=== PATIENT | female | born 1940 | race Caucasian/White ===

== ENCOUNTER 2017-09-25 14:24 | Inpatient (IN) | payer MEDICARE ==
--- NOTE | 2017-09-25 14:57 | ER Document Report ---
ED General - General Stated Complaint: WEAKNESS Time Seen by Provider: 09/25/17 14:54 Information source: Patient Notes: 77-year-old female patient to the emergency department via EMS for evaluation of lower extremity weakness. States that she woke up at about 3 AM and noticed that she was having difficulty walking. Questionable difficulty with speech. Just arrived here approximately 12 hours after the onset of symptoms. States that she has had a headache on the right occiput area. She states that she does not have any medical problems, never takes any medication and has never had a surgery. - HPI Onset: This morning Onset/Duration: Gradual, Worse Severity: Moderate - Related Data Allergies/Adverse Reactions: No Known Allergies Allergy (Verified 09/25/17 15:48) Past Medical History - General Information source: Patient - Social History Smoking Status: Never Smoker Cigarette use (# per day): No Frequency of alcohol use: None Drug Abuse: None Lives with: Spouse/Significant other Family History: None - Past Medical History Cardiac Medical History: Reports: None Pulmonary Medical History: Reports: None Neurological Medical History: Reports: None Endocrine Medical History: Reports: None Renal/ Medical History: Reports: None Malignancy Medical History: Reports: None GI Medical History: Reports: None Musculoskeltal Medical History: Reports None Skin Medical History: Reports None Psychiatric Medical History: Reports: None Traumatic Medical History: Reports: None Infectious Medical History: Reports: None Surgical Hx: Negative Review of Systems - Review of Systems Constitutional: Weakness. denies: Chills, Fever, Malaise EENT: Blurred vision. denies: Eye pain, Eye discharge, Tearing, Difficulty swallowing Cardiovascular: denies: Chest pain, Palpitations, Heart racing, Dyspnea, Syncope , Dizziness Respiratory: denies: Cough, Hurts to breathe, Hemoptysis, Short of breath, Sputum Gastrointestinal: denies: Abdominal pain, Diarrhea, Nausea Genitourinary: denies: Burning, Dysuria, Discharge, Hematuria Musculoskeletal: See HPI. denies: Muscle pain, Muscle stiffness, Leg swelling, Ankle swelling Skin: denies: Change in hair/nails, Dryness, Lesions, Lumps, Rash Hematologic/Lymphatic: denies: Blood clots, Easy bleeding, Easy bruising, Swollen glands Neurological/Psychological: Weakness, Speech impairment, Numbness. denies: Confusion Physical Exam - Vital signs Vitals: Resp Pulse Ox 17 98 09/25/17 14:59 09/25/17 14:59 Interpretation: Normal - General General appearance: Appears well, Alert - HEENT Head: Normocephalic, Atraumatic Eyes: Normal Pupils: PERRL - Respiratory Respiratory status: No respiratory distress Chest status: Nontender Breath sounds: Normal Chest palpation: Normal - Cardiovascular Rhythm: Regular Heart sounds: Normal auscultation Murmur: No - Abdominal Inspection: Normal Distension: No distension Bowel sounds: Normal Tenderness: Nontender Organomegaly: No organomegaly - Back Back: Normal, Nontender - Extremities General upper extremity: Normal inspection, Nontender, Normal color, Normal ROM , Normal temperature General lower extremity: Normal inspection, Nontender, Normal color, Normal ROM , Normal temperature, Normal weight bearing. No: Trinidad's sign - Neurological Neuro grossly intact: Yes Cognition: Normal Orientation: AAOx4 Ishan Coma Scale Eye Opening: Spontaneous Ishan Coma Scale Verbal: Oriented Ishan Coma Scale Motor: Obeys Commands Ishan Coma Scale Total: 15 Speech: Other - Does have some mild word finding issues Cranial nerves: Normal Motor strength normal: LUE, RUE. No: LLE, RLE Additional motor exam normals: Weakness Sensory: Normal - Psychological Associated symptoms: Normal affect, Normal mood - Skin Skin Temperature: Warm Skin Moisture: Dry Skin Color: Normal Course - Re-evaluation Re-evalutation: 09/25/17 15:39 Is a 77-year-old female patient with noticeable right lower extremity weakness as well as left lower extremity weakness. Was extremely hypertensive in the field. Required 20 mg of IV labetalol to get her blood pressure down below 200. Symptoms are greater than 12 hours so not a candidate for thrombolytics. Will proceed with stroke workup at this time 09/25/17 15:48 Patient with right TONGUE TRIMMER acute infarct. MRI ordered. 09/25/17 16:[address] Penaloza. Will admit to the hospital at this time. - Vital Signs Vital signs: Temp Pulse Resp BP Pulse Ox 98.9 F 77 14 165/94 H 98 09/25/17 15:01 09/25/17 15:00 09/25/17 15:01 09/25/17 15:01 09/25/17 15:01 - Laboratory Result Diagrams: 09/25/17 15:25 09/25/17 15:25 Laboratory results interpreted by me: 09/25/17 09/25/17 15:25 15:25 Seg Neutrophils % 84.1 H Lymphocytes % 9.6 L Glucose 129 H - EKG Interpretation by Me EKG shows normal: Sinus rhythm, [place], Intervals, QRS Complexes - There is T- wave inversions in aVL as well as V4 V5 Critical Care Note - Critical Care Note Total time excluding time spent on procedures (mins): 35 Comments: Acute stroke, hypertensive crisis, neurological symptoms Discharge - Discharge Clinical Impression: 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
--- NOTE | 2017-09-25 15:32 | RADIOLOGY REPORT (SQ) ---
EXAM DESCRIPTION: CT HEAD WITHOUT COMPLETED DATE/TIME: 09/25/2017 3:14 pm REASON FOR STUDY: weakness COMPARISON: None. TECHNIQUE: Axial images acquired through the brain without intravenous contrast. Images reviewed wi th bone, brain and subdural windows. Images stored on PACS. All CT scanners at this facility use dose modulation, iterative reconstruction, and/or weight based d osing when appropriate to reduce radiation dose to as low as reasonably achievable (ALARA). [facility]: Dose Right [facility]: CareDose [facility]: Dose Right [facility]: Teradose 4D [facility]: Smart Gone! RADIATION DOSE: CT Rad equipment meets quality standard of care and radiation dose reduction techniq ues were employed. CTDIvol: 64.6 mGy. DLP: 1034 mGy-cm.mGy. LIMITATIONS: None. FINDINGS: VENTRICLES: Prominent. CEREBRUM: Geographic low attenuation right occipital lobe. No evidence of hemorrhage or mass effect. Old lacunar infarct right basal ganglia. No extra-axial fluid collection. CEREBELLUM: No masses. No hemorrhage. No alteration of density. No evidence for acute infarction. EXTRAAXIAL SPACES: Age-related involutional change. No fluid collections. No masses. ORBITS AND GLOBE: No intra- or extraconal masses. Normal contour of globe without masses. CALVARIUM: No fracture. PARANASAL SINUSES: Mucosal thickening left maxillary and left sphenoid sinuses. SOFT TISSUES: No mass or hematoma. OTHER: No other significant finding. IMPRESSION: Right HEARING AID REPAIR TECHNICIAN territory infarct of uncertain chronicity, possibly acute. No evidence of hem orrhage. EVIDENCE OF ACUTE STROKE: YES. RIGHT HEARING AID REPAIR TECHNICIAN TECHNICAL DOCUMENTATION: JOB ID: [id number] Quality ID # [id number]: Final reports with documentation of one or more dose reduction techniques (e.g., Au tomated exposure control, adjustment of the mA and/or kV according to patient size, use of iterative reconstruction technique) 2010 [employer]- All Rights Reserved
--- NOTE | 2017-09-25 15:42 | RADIOLOGY REPORT (SQ) ---
EXAM DESCRIPTION: CHEST SINGLE VIEW COMPLETED DATE/TIME: 09/25/2017 3:24 pm REASON FOR STUDY: sob COMPARISON: None. EXAM PARAMETERS: NUMBER OF VIEWS: One view. TECHNIQUE: Single frontal radiographic view of the chest acquired. RADIATION DOSE: NA LIMITATIONS: None. FINDINGS: LUNGS AND PLEURA: No opacities, masses or pneumothorax. No pleural effusion. Couple tiny nodular densities are identified in the right mid lung field. Correlation with any prior radiographs if available is recommended. If these are not available chest CT scan should be considered for furt her evaluation MEDIASTINUM AND HILAR STRUCTURES: No masses. Contour normal. HEART AND VASCULAR STRUCTURES: Heart normal in size. Normal vasculature. BONES: No acute findings. HARDWARE: None in the chest. OTHER: No other significant finding. IMPRESSION: No acute changes. Other findings as noted above TECHNICAL DOCUMENTATION: JOB ID: [id number] [employer]- All Rights Reserved
[2017-09-25] MEDS ORDERED: ASPIRIN 81 MG TABLET, CHEWABLE PO ONE (15:48)
[2017-09-25 15:51] LABS: ABSOLUTE BASOPHILS # (AUTO) 0.1 10^3/uL (0.0-0.2); ABSOLUTE LYMPHOCYTES (AUTO) 0.7 10^3/uL (0.5-4.7); ABSOLUTE MONOCYTES (AUTO) 0.4 10^3/uL (0.1-1.4); ABSOLUTE NEUT (AUTO) 6.2 10^3/uL (1.7-8.2); BASOPHILS % (AUTO) 0.9 % (0-2); EOSINOPHILS % (AUTO) 0.2 % (0-6); HEMATOCRIT 43.1 % (36.0-47.0); HEMOGLOBIN 14.8 g/dL (12.0-15.5); LYMPHOCYTES % (AUTO) 9.6 % (13-45); MEAN CORPUSCULAR HEMOGLOBIN 31.2 pg (27.0-33.4); MEAN CORPUSCULAR HGB CONC 34.2 g/dL (32.0-36.0); MEAN CORPUSCULAR VOLUME 91 fl (80-97); MONOCYTES % (AUTO) 5.2 % (3-13); PLATELET COUNT 298 10^3/uL (150-450); RED BLOOD COUNT 4.73 10^6/uL (3.72-5.28); RED CELL DISTRIBUTION WIDTH 13.6 % (11.5-14.0); SEGMENTED NEUTROPHILS % (AUTO) 84.1 % (42-78); TOTAL CELLS COUNTED % (AUTO) 100 %; WHITE BLOOD COUNT 7.4 10^3/uL (4.0-10.5)
[2017-09-25 15:54] LABS: INTERNATIONAL RATION (INR) 0.97; PROTHROMBIN TIME 13.6 SEC (11.4-15.4)
[2017-09-25 15:55] LABS: PARTIAL THROMBOPLASTIN TIME 26.9 SEC (23.5-35.8)
[2017-09-25 16:08] LABS: ALANINE AMINOTRANSFERASE 25 U/L (9-52); ALBUMIN 4.2 g/dL (3.5-5.0); ALKALINE PHOSPHATASE 78 U/L (38-126); ANION GAP 9 (5-19); ASPARTATE AMINO TRANSFERASE 21 U/L (14-36); BILIRUBIN,DIRECT 0.2 mg/dL (0.0-0.4); BILIRUBIN,TOTAL 0.8 mg/dL (0.2-1.3); BLOOD UREA NITROGEN 18 mg/dL (7-20); CALCIUM 9.9 mg/dL (8.4-10.2); CARBON DIOXIDE 25 mmol/L (22-30); CHLORIDE 105 mmol/L (98-107); GLUCOSE 129 mg/dL (75-110); POTASSIUM 4.1 mmol/L (3.6-5.0); SODIUM 139.2 mmol/L (137-145); TOTAL PROTEIN 6.9 g/dL (6.3-8.2)
[2017-09-25 16:19] LABS: NT PRO BNP 115 pg/mL (<450)
[2017-09-25 16:20] LABS: TROPONIN I < 0.012 ng/mL
[2017-09-25] MEDS ORDERED: ONDANSETRON HCL INJ/PF 4 MG/2 ML SDV IV PRN (16:56)
[2017-09-25] MEDS ORDERED: TRAMADOL HCL 50 MG TABLET PO PRN (16:56)
[2017-09-25] MEDS ORDERED: ONDANSETRON 4 MG TAB.RAPDIS PO PRN (16:56)
[2017-09-25] MEDS ORDERED: ACETAMINOPHEN 325 MG TABLET PO PRN (16:56)
[2017-09-25 17:33] LABS: APPEARANCE,URINE CLEAR; BILIRUBIN,URINE NEGATIVE (NEGATIVE); COLOR,URINE YELLOW; GLUCOSE, URINE NEGATIVE (NEGATIVE); KETONES,URINE 20 mg/dL (NEGATIVE); LEUKOCYTE ESTERASE,URINE NEGATIVE (NEGATIVE); NITRITE,URINE NEGATIVE (NEGATIVE); PROTEIN,URINE NEGATIVE (NEGATIVE); URINE SPECIFIC GRAVITY 1.023
--- NOTE | 2017-09-25 17:33 | PDOC H&P ---
History of Present Illness Admission Date/PCP: 09/25/17 16:10 Patient complains of: Leg weakness and difficulty speaking. History of Present Illness: GILBERTO JASON is a 77 year old female with no significant past medical history who presents with bilateral lower extremity weakness along with some dysarthria. Patient reports that she woke up at 3 AM this morning and noticed that she had some weakness in her left leg. She thought nothing of it at the time went back to sleep. When she woke up this morning she noticed that she was having difficulty speaking and also had weakness in her bilateral legs left greater than right. The patient also noted having pain in the right occiput area. That headache has since resolved. The patient had a head CT done which does confirm a right posterior circulation CVA. The patient has not taken any aspirin. She has no past medical history and has not seen a doctor in her entire life. Patient is admitted for an acute CVA. Past Medical History Cardiac Medical History: Reports: None Pulmonary Medical History: Reports: None EENT Medical History: Reports: None Neurological Medical History: Reports: None Endocrine Medical History: Reports: None Renal/ Medical History: Reports: None Malignancy Medical History: Reports: None GI Medical History: Reports: None Musculoskeltal Medical History: Reports: None Skin Medical History: Reports: None Psychiatric Medical History: Reports: None Traumatic Medical History: Reports: None Infectious Medical History: Reports: None Past Surgical History Past Surgical History: Reports: None Social History Information Source: Patient Lives with: Spouse/Significant other Smoking Status: Never Smoker Frequency of Alcohol Use: None Hx Recreational Drug Use: No Drugs: None - Advance Directive Resuscitation Status: Full Code Surrogate healthcare decision maker:: She has no living family. Rosa Mckinney is a friend she identifies to make healthcare decisions for her if she is unable to Family History Family History: None Family History: Mother at age 65 and had no chronic health problems. Father at age 73 and had no chronic health problems. Parental Family History Reviewed: Yes Children Family History Reviewed: No Sibling(s) Family History Reviewed.: No Medication/Allergy Home Medications: No Home Medications 09/25/17 Allergies/Adverse Reactions: No Known Allergies Allergy (Verified 09/25/17 15:48) Review of Systems Constitutional: PRESENT: headache(s). ABSENT: chills, fever(s), weight gain, weight loss Eyes: ABSENT: visual disturbances Ears: ABSENT: hearing changes Cardiovascular: ABSENT: chest pain, dyspnea on exertion, edema, orthropnea, palpitations Respiratory: ABSENT: cough, hemoptysis Gastrointestinal: ABSENT: abdominal pain, constipation, diarrhea, hematemesis, hematochezia, nausea, vomiting Genitourinary: ABSENT: dysuria, hematuria Musculoskeletal: PRESENT: muscle weakness. ABSENT: joint swelling Integumentary: ABSENT: rash, wounds Neurological: PRESENT: abnormal speech, weakness Psychiatric: ABSENT: anxiety, depression Endocrine: ABSENT: cold intolerance, heat intolerance, polydipsia, polyuria Hematologic/Lymphatic: ABSENT: easy bleeding, easy bruising Physical Exam Vital Signs: Temp Pulse Resp BP Pulse Ox 98.9 F 77 14 165/94 H 98 09/25/17 15:01 09/25/17 15:00 09/25/17 15:01 09/25/17 15:01 09/25/17 15:01 General appearance: PRESENT: no acute distress, well-developed, well-nourished Head exam: PRESENT: atraumatic, normocephalic Eye exam: PRESENT: conjunctiva pink, EOMI, PERRLA. ABSENT: scleral icterus Ear exam: PRESENT: normal external ear exam Mouth exam: PRESENT: moist, tongue midline Neck exam: ABSENT: JVD Respiratory exam: PRESENT: clear to auscultation fanny. ABSENT: rales, rhonchi, wheezes Cardiovascular exam: PRESENT: RRR. ABSENT: diastolic murmur, rubs, systolic murmur Pulses: PRESENT: normal dorsalis pedis pul Vascular exam: PRESENT: normal capillary refill GI/Abdominal exam: PRESENT: normal bowel sounds, soft. ABSENT: distended, guarding, mass, organolmegaly, rebound, tenderness Rectal exam: PRESENT: deferred Extremities exam: ABSENT: calf tenderness, clubbing, pedal edema Neurological exam: PRESENT: alert, awake, oriented to person, oriented to place , oriented to time, oriented to situation, CN II-XII grossly intact, motor sensory deficit - Patient has weakness in the bilateral legs left greater than right Psychiatric exam: PRESENT: appropriate affect Skin exam: PRESENT: dry, intact, warm. ABSENT: cyanosis, rash Results Impressions: Chest X-Ray 09/25/17 14:55 IMPRESSION: No acute changes. Other findings as noted above Head CT 09/25/17 14:55 IMPRESSION: Right SEPARATOR INSERTER territory infarct of uncertain chronicity, possibly acute. No evidence of hemorrhage. EVIDENCE OF ACUTE STROKE: YES. 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 Will do serial neurological exams. We will start the patient on aspirin daily. Carotid Dopplers and MRI have been ordered. We will also consult PT and OT. She most likely will need rehab given that she has no family. - Time Time Spent: 50 to 70 Minutes - Inpatient Certification Medical Necessity: Need for Neurological Checks
[2017-09-25] MEDS: HYDRALAZINE HCL INJ/PF 20 MG/1 ML SDV IV PRN (18:17)
--- NOTE | 2017-09-25 18:18 | RADIOLOGY REPORT (SQ) ---
EXAM DESCRIPTION: MRI HEAD WITHOUT COMPLETED DATE/TIME: 09/25/2017 6:09 pm REASON FOR STUDY: leg weakness COMPARISON: HEAD CT FOR 09/25/2017 TECHNIQUE: Multiplanar imaging includes non-contrasted T1, T2, FLAIR, and diffusion with ADC map seq uences. Images stored on PACS. LIMITATIONS: None. FINDINGS: ANATOMY: No anomalies. Normal vascular flow voids. Pituitary fossa normal. CSF SPACES: Atrophy induced prominence of ventricles and CSF spaces. CEREBRUM: NUMEROUS HIGH signal intensity lesions scattered throughout the white matter on FLAIR imagi ng with distribution suggesting micro-vascular ischemic changes. No evidence of hemorrhage, mass, or extraaxial fluid collection. POSTERIOR FOSSA: No signal alteration. No hemorrhage. No edema, masses or mass effect. Internal lamberto tory canals, cerebello-pontine angles, mastoids normal. DIFFUSION IMAGING: CONFLUENT AREA OF RESTRICTED DIFFUSION INVOLVING THE RIGHT OCCIPITAL LOBE CORRESPO NDING TO AREA OF LOW ATTENUATION ON PRIOR CT COMPATIBLE WITH ACUTE CDL DRIVER TERRITORY INFARCTION. ADDITIO NAL RIBBON LIKE AREAS OF RESTRICTED DIFFUSION INVOLVING THE LEFT GREATER THAN RIGHT FRONTAL LOBES TA NG SAAVEDRA WHITE MATTER JUNCTIONS COMPATIBLE WITH WATERSHED TERRITORY TYPE INFARCTION. ORBITS: No masses. Globes normal. PARANASAL SINUSES: Mucosal thickening. No air-fluid levels. OTHER: No other significant finding. IMPRESSION: ACUTE INFARCTION RIGHT OCCIPITAL LOBE CORRESPONDING TO FINDINGS ON CT WITH ADDITIONAL AR EAS OF WATERSHED TYPE INFARCTION INVOLVING THE BILATERAL FRONTAL LOBES DETAILED ABOVE. EVIDENCE OF ACUTE STROKE: YES. RIGHT CDL DRIVER AND WATERSHED DISTRIBUTION. TECHNICAL DOCUMENTATION: JOB ID: [id number] [employer]- All Rights Reserved
[2017-09-25] MEDS: ATORVASTATIN CALCIUM 40 MG TABLET PO SCH (22:39)
[2017-09-25] MEDS: FAMOTIDINE 20 MG TABLET PO SCH (22:39)
[2017-09-26 05:08] LABS: HEMATOCRIT 40.6 % (36.0-47.0); HEMOGLOBIN 13.9 g/dL (12.0-15.5); MEAN CORPUSCULAR HEMOGLOBIN 30.8 pg (27.0-33.4); MEAN CORPUSCULAR HGB CONC 34.1 g/dL (32.0-36.0); MEAN CORPUSCULAR VOLUME 90 fl (80-97); PLATELET COUNT 294 10^3/uL (150-450); RED BLOOD COUNT 4.51 10^6/uL (3.72-5.28); RED CELL DISTRIBUTION WIDTH 13.6 % (11.5-14.0)
[2017-09-26 05:23] LABS: ANION GAP 10 (5-19); BLOOD UREA NITROGEN 21 mg/dL (7-20); CALCIUM 9.4 mg/dL (8.4-10.2); CARBON DIOXIDE 25 mmol/L (22-30); CHLORIDE 105 mmol/L (98-107); GLUCOSE 114 mg/dL (75-110); POTASSIUM 3.8 mmol/L (3.6-5.0); SODIUM 140.2 mmol/L (137-145)
--- NOTE | 2017-09-26 10:14 | PDOC PROGRESS REPORT ---
Subjective Progress Note for:: 09/26/17 Subjective:: Patient has some use of her left leg again. Reason For Visit: CVA Physical Exam Vital Signs: Temp Pulse Resp BP Pulse Ox 99.0 F 87 20 151/72 H 97 09/26/17 03:23 09/26/17 04:00 09/26/17 04:00 09/26/17 04:00 09/26/17 04:00 Intake & Output 09/25/17 09/26/17 09/27/17 06:59 06:59 06:59 Intake Total 360 Output Total 100 Balance 260 Weight 77.2 kg General appearance: PRESENT: no acute distress Eye exam: PRESENT: conjunctiva pink. ABSENT: scleral icterus Mouth exam: PRESENT: moist, tongue midline Neck exam: ABSENT: JVD Respiratory exam: PRESENT: clear to auscultation fanny. ABSENT: rales, rhonchi, wheezes Cardiovascular exam: PRESENT: RRR. ABSENT: diastolic murmur, rubs, systolic murmur GI/Abdominal exam: PRESENT: normal bowel sounds, soft. ABSENT: distended, guarding, mass, organolmegaly, rebound, tenderness Extremities exam: ABSENT: calf tenderness, clubbing, pedal edema Neurological exam: PRESENT: alert, awake, oriented to person, oriented to place , oriented to time, oriented to situation, CN II-XII grossly intact, motor sensory deficit - Bilateral leg weakness left greater than right. Left leg is 3 out of 5. Psychiatric exam: PRESENT: appropriate affect Skin exam: PRESENT: dry, intact, warm. ABSENT: cyanosis, rash Results Laboratory Results: 09/26/17 04:50 09/26/17 04:50 09/25/17 09/26/17 09/26/17 17:10 04:50 04:50 WBC 8.0 RBC 4.51 Hgb 13.9 Hct 40.6 MCV 90 MCH 30.8 MCHC 34.1 RDW 13.6 Plt Count 294 Sodium 140.2 Potassium 3.8 Chloride 105 Carbon Dioxide 25 Anion Gap 10 BUN 21 H Creatinine 0.75 Est GFR ( Amer) > 60 Est GFR (Non-Af Amer) > 60 Glucose 114 H Calcium 9.4 Urine Color YELLOW Urine Appearance CLEAR Urine pH 6.0 Ur Specific [place] 1.023 Urine Protein NEGATIVE Urine Glucose (UA) NEGATIVE Urine Ketones 20 H Urine Blood NEGATIVE Urine Nitrite NEGATIVE Ur Leukocyte Esterase NEGATIVE Urine WBC (Auto) 2 Urine RBC (Auto) 0 Impressions: Head MRI 09/25/17 00:00 IMPRESSION: ACUTE INFARCTION RIGHT OCCIPITAL LOBE CORRESPONDING TO FINDINGS ON CT WITH ADDITIONAL AREAS OF WATERSHED TYPE INFARCTION INVOLVING THE BILATERAL FRONTAL LOBES DETAILED ABOVE. EVIDENCE OF ACUTE STROKE: YES. RIGHT COMMERCIAL TECHNICIAN AND WATERSHED DISTRIBUTION. Chest X-Ray 09/25/17 14:55 IMPRESSION: No acute changes. Other findings as noted above Head CT 09/25/17 14:55 IMPRESSION: Right COMMERCIAL TECHNICIAN territory infarct of uncertain chronicity, possibly acute. No evidence of hemorrhage. EVIDENCE OF ACUTE STROKE: YES. 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 We will also consult PT and OT. MRI shows right posterior artery infarction. Also watershed infarction of the frontal lobes. She most likely will need rehab given that she has no family. - Time Time Spent with patient: 25-34 minutes - Inpatient Certification Medical Necessity: Need Close Monitoring Due to Risk of Patient Decompensation
[2017-09-26] MEDS: ASPIRIN 325 MG TABLET, ENT COATED PO SCH (10:19)
[2017-09-26] MEDS: FAMOTIDINE 20 MG TABLET PO SCH ×2 (10:19→23:46)
--- NOTE | 2017-09-26 10:19 | EKG REPORT ---
SEVERITY:- ABNORMAL ECG - SINUS RHYTHM ABNORMAL T, CONSIDER ISCHEMIA, ANT-LAT LEADS : Confirmed by: Emeli Christianson 26-Sep-2017 10:18:44
[2017-09-26] MEDS: ENOXAPARIN SODIUM INJ 40 MG/0.4 ML DISP.SYRIN SUBCUT SCH (10:20)
--- NOTE | 2017-09-26 12:31 | RADIOLOGY REPORT (SQ) ---
EXAM DESCRIPTION: CAROTID DOPPLER COMPLETED DATE/TIME: 09/25/2017 8:10 pm REASON FOR STUDY: leg weakness COMPARISON: None. TECHNIQUE: Grayscale ultrasound, Doppler velocity and spectra, and color Doppler images acquired of the extra-cranial carotid and vertebral arteries. Images stored on PACS. LIMITATIONS: None. FINDINGS: RIGHT CAROTID CCA Velocities: Within normal limits. ICA Velocities Peak systolic 1.13 m/s. End diastolic 0.22 m/s. Proximal ICA/CCA peak systolic ratio 1 point to. Spectra normal. Mild moderate plaque. LEFT CAROTID CCA Velocities: Within normal limits. ICA Velocities Peak systolic 0.72 m/s. End diastolic 0.21 m/s. Proximal ICA/CCA peak systolic ratio 0.9. Spectra normal. Mild plaque. VERTEBRAL ARTERIES: Antegrade flow. Normal waveforms. SUBCLAVIAN ARTERIES: No finding. OTHER: No other significant finding. IMPRESSION: NO HEMODYNAMICALLY SIGNIFICANT STENOSIS. COMMENT: Quality ID #[id number]: Velocity criteria are extrapolated from the diameter data as defined by t he Society of Radiologists in Ultrasound Consensus Conference. Radiology 2003: 229; 340-346. TECHNICAL DOCUMENTATION: JOB ID: [id number] [employer]- All Rights Reserved
[2017-09-26] MEDS: HYDRALAZINE HCL INJ/PF 20 MG/1 ML SDV IV PRN (20:34)
[2017-09-26] MEDS ORDERED: HYDRALAZINE HCL INJ/PF 20 MG/1 ML SDV IV ONE (22:15)
[2017-09-26] MEDS: ATORVASTATIN CALCIUM 40 MG TABLET PO SCH (23:47)
[2017-09-27] MEDS: ASPIRIN 325 MG TABLET, ENT COATED PO SCH (08:44)
[2017-09-27] MEDS: FAMOTIDINE 20 MG TABLET PO SCH ×2 (08:44→20:28)
[2017-09-27] MEDS: HYDRALAZINE HCL INJ/PF 20 MG/1 ML SDV IV PRN (08:44)
[2017-09-27] MEDS: ENOXAPARIN SODIUM INJ 40 MG/0.4 ML DISP.SYRIN SUBCUT SCH (08:45)
--- NOTE | 2017-09-27 12:05 | PDOC PROGRESS REPORT ---
Subjective Progress Note for:: 09/27/17 Subjective:: She continues to have improvement in left leg strength. Reason For Visit: CVA Physical Exam Vital Signs: Temp Pulse Resp BP Pulse Ox 98.2 F 83 19 180/87 H 98 09/27/17 08:08 09/27/17 08:08 09/27/17 08:08 09/27/17 08:08 09/27/17 08:08 Intake & Output 09/26/17 09/27/17 09/28/17 06:59 06:59 06:59 Intake Total 360 725 Output Total 100 500 Balance 260 225 Weight 77.2 kg 76.6 kg General appearance: PRESENT: no acute distress Eye exam: PRESENT: conjunctiva pink. ABSENT: scleral icterus Ear exam: PRESENT: normal external ear exam Mouth exam: PRESENT: moist, tongue midline Neck exam: ABSENT: JVD Respiratory exam: PRESENT: clear to auscultation fanny. ABSENT: rales, rhonchi, wheezes Cardiovascular exam: PRESENT: RRR. ABSENT: diastolic murmur, rubs, systolic murmur GI/Abdominal exam: PRESENT: normal bowel sounds, soft. ABSENT: distended, guarding, mass, organolmegaly, rebound, tenderness Extremities exam: ABSENT: calf tenderness, clubbing, pedal edema Neurological exam: PRESENT: alert, awake, oriented to person, oriented to place , oriented to time, oriented to situation, CN II-XII grossly intact, motor sensory deficit - 3 out of 5 strength in the left lower extremity. Psychiatric exam: PRESENT: appropriate affect Skin exam: PRESENT: dry, intact, warm. ABSENT: cyanosis, rash Results Laboratory Results: 09/26/17 04:50 09/26/17 04:50 Impressions: Head MRI 09/25/17 00:00 IMPRESSION: ACUTE INFARCTION RIGHT OCCIPITAL LOBE CORRESPONDING TO FINDINGS ON CT WITH ADDITIONAL AREAS OF WATERSHED TYPE INFARCTION INVOLVING THE BILATERAL FRONTAL LOBES DETAILED ABOVE. EVIDENCE OF ACUTE STROKE: YES. RIGHT RADON INSPECTOR AND WATERSHED DISTRIBUTION. Chest X-Ray 09/25/17 14:55 IMPRESSION: No acute changes. Other findings as noted above Head CT 09/25/17 14:55 IMPRESSION: Right RADON INSPECTOR territory infarct of uncertain chronicity, possibly acute. No evidence of hemorrhage. EVIDENCE OF ACUTE STROKE: YES. RIGHT RADON INSPECTOR Carotid Doppler Study 09/25/17 17:00 IMPRESSION: NO HEMODYNAMICALLY SIGNIFICANT STENOSIS. 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 We will also consult PT and OT. MRI shows right posterior artery infarction. Also watershed infarction of the frontal lobes. She most likely will need rehab given that she has no family. (2) Hypertension Is this a current diagnosis for this admission?: Yes Plan: We will add on Norvasc to her therapy. - Time Time Spent with patient: 15-24 minutes - Plan Summary Plan Summary: Patient is agreeable to going to rehab.
[2017-09-27] MEDS: AMLODIPINE BESYLATE 5 MG TABLET PO SCH (17:51)
[2017-09-27] MEDS: NORMAL SALINE 1000 ML 1,000 ML IV PRN (18:00)
[2017-09-27] MEDS: ATORVASTATIN CALCIUM 40 MG TABLET PO SCH (20:27)
[2017-09-28] MEDS: NORMAL SALINE 1000 ML 1,000 ML IV PRN ×2 (00:53→05:35)
[2017-09-28] MEDS: ASPIRIN 325 MG TABLET, ENT COATED PO SCH (09:23)
[2017-09-28] MEDS: FAMOTIDINE 20 MG TABLET PO SCH (09:23)
[2017-09-28] MEDS: ENOXAPARIN SODIUM INJ 40 MG/0.4 ML DISP.SYRIN SUBCUT SCH (09:23)
[2017-09-28] MEDS: AMLODIPINE BESYLATE 5 MG TABLET PO SCH (09:24)
--- NOTE | 2017-09-28 12:44 | PDOC TRANSFER SUMMARY ---
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 Is this a current diagnosis for this admission?: Yes (2) Hypertension Is this a current diagnosis for this admission?: Yes - Additional Information Resuscitation Status: Full Code Discharge Diet: Cardiac Discharge Activity: Activity As Tolerated Home Medications: Amlodipine Besylate [Norvasc 5 mg Tablet] 5 mg PO DAILY tablet 09/28/17 Aspirin [Ecotrin 325 mg EC Tablet] 325 mg PO DAILY tabec 09/28/17 Atorvastatin Calcium [Lipitor 40 mg Tablet] 40 mg PO QHS tablet 09/28/17 History of Present Illness Admission Date/PCP: 09/25/17 16:10 History of Present Illness: GILBERTO JASON is a 77 year old female with no significant past medical history who presents with bilateral lower extremity weakness along with some dysarthria. Patient reports that she woke up at 3 AM this morning and noticed that she had some weakness in her left leg. She thought nothing of it at the time went back to sleep. When she woke up this morning she noticed that she was having difficulty speaking and also had weakness in her bilateral legs left greater than right. The patient also noted having pain in the right occiput area. That headache has since resolved. The patient had a head CT done which does confirm a right posterior circulation CVA. The patient has not taken any aspirin. She has no past medical history and has not seen a doctor in her entire life. Patient is admitted for an acute CVA. Hospital Course Hospital Course: 77-year-old female who has been in good health with no chronic health issues who presented to the hospital with leg weakness and some dysarthria. Patient reported that she woke up with some weakness in her left leg but went back to sleep because it was in the middle the night. She also had a right occiput headache at that time. When she awoke she was having inability to move her legs and was continued to have dysarthria. Dysarthria resolved however her weakness in her legs left greater than right continued and she was transferred to the hospital. Patient was found to have an acute right occipital infarction. MRI confirmed the occipital infarction also did show some bilateral frontal watershed type infarction. The patient had carotid Dopplers that showed no significant stenosis. The patient was in aspirin collins patient and she was started on aspirin as well as Lipitor. Patient was seen by physical and occupational therapy and she improved but continues to have weakness in her legs. [place] the patient could benefit from rehabilitation. Patient had an echocardiogram done. The results of this echocardiogram is pending at the time of this dictation. She has not had any cardiac arrhythmias however. The patient lives alone and has no living family. She will be admitted to [facility] for rehab. Physical Exam Vital Signs: Temp Pulse Resp BP Pulse Ox 98.8 F 79 20 173/70 H 99 09/28/17 12:07 09/28/17 12:07 09/28/17 12:07 09/28/17 12:07 09/28/17 12:07 Intake & Output 09/27/17 09/28/17 09/29/17 06:59 06:59 06:59 Intake Total 725 2761 Output Total 500 650 Balance 225 2111 Weight 76.6 kg 82.1 kg General appearance: PRESENT: no acute distress Eye exam: PRESENT: conjunctiva pink. ABSENT: scleral icterus Mouth exam: PRESENT: moist, tongue midline Neck exam: ABSENT: JVD Respiratory exam: PRESENT: clear to auscultation fanny. ABSENT: rales, rhonchi, wheezes Cardiovascular exam: PRESENT: RRR. ABSENT: diastolic murmur, rubs, systolic murmur GI/Abdominal exam: PRESENT: normal bowel sounds, soft. ABSENT: distended, guarding, mass, organolmegaly, rebound, tenderness Extremities exam: ABSENT: calf tenderness, clubbing, pedal edema Neurological exam: PRESENT: alert, awake, oriented to person, oriented to place , oriented to time, oriented to situation, CN II-XII grossly intact, motor sensory deficit - Left leg is weak Psychiatric exam: PRESENT: appropriate affect Skin exam: PRESENT: dry, intact, warm. ABSENT: cyanosis, rash Results Laboratory Results: 09/26/17 04:50 09/26/17 04:50 Impressions: Head MRI 09/25/17 00:00 IMPRESSION: ACUTE INFARCTION RIGHT OCCIPITAL LOBE CORRESPONDING TO FINDINGS ON CT WITH ADDITIONAL AREAS OF WATERSHED TYPE INFARCTION INVOLVING THE BILATERAL FRONTAL LOBES DETAILED ABOVE. EVIDENCE OF ACUTE STROKE: YES. RIGHT SUPERVISOR BEET END AND WATERSHED DISTRIBUTION. Chest X-Ray 09/25/17 14:55 IMPRESSION: No acute changes. Other findings as noted above Head CT 09/25/17 14:55 IMPRESSION: Right SUPERVISOR BEET END territory infarct of uncertain chronicity, possibly acute. No evidence of hemorrhage. EVIDENCE OF ACUTE STROKE: YES. RIGHT SUPERVISOR BEET END Carotid Doppler Study 09/25/17 17:00 IMPRESSION: NO HEMODYNAMICALLY SIGNIFICANT STENOSIS. Transfer Plan - Disposition Transfer Plan: Patient will be transferred to [facility] for rehab. - Time Spent with Patient Time spent with patient: Greater than 30 Minutes Qualifiers PATEINT BEING DISCHARGED WITH ANY OF THE FOLLOWING DIAGNOSIS?: Stroke Stroke Pt being discharged on Anti-thrombolytic therapy?: Yes Stroke Pt being discharged on Anti-coagulation therapy?: No Reason(s) for not prescribing Anti-coagulation therapy:: Not indicated Stroke Pt being discharged on Statins?: Yes Plan Discharge Plan: Patient will be transferred to [facility] for rehab. Follow -up with primary care in 2 weeks. Time Spent: Greater than 30 Minutes
[2017-09-28] MEDS: HYDRALAZINE HCL INJ/PF 20 MG/1 ML SDV IV PRN (13:12)
[2017-09-28 16:17] VITALS: BP 152/57
--- NOTE | 2017-09-29 15:47 | RADIOLOGY REPORT (SQ) ---
EXAM DESCRIPTION: CAROTID DOPPLER COMPLETED DATE/TIME: 09/25/2017 8:10 pm REASON FOR STUDY: Leg weakness COMPARISON: None. TECHNIQUE: Grayscale ultrasound, Doppler velocity and spectra, and color Doppler images acquired of the extra-cranial carotid and vertebral arteries. Images stored on PACS. LIMITATIONS: None. FINDINGS: RIGHT CAROTID CCA Velocities: Within normal limits. ICA Velocities Peak systolic 1.13 m/s. End diastolic 0.22 m/s. Proximal ICA/CCA peak systolic ratio 1 point to . Spectra normal. Mild moderate plaque. LEFT CAROTID CCA Velocities: Within normal limits. ICA Velocities Peak systolic 0.72 m/s. End diastolic 0.21 m/s. Proximal ICA/CCA peak systolic ratio 0.9 . Spectra normal. Mild plaque. VERTEBRAL ARTERIES: Antegrade flow. Normal waveforms. SUBCLAVIAN ARTERIES: No finding. OTHER: No other significant finding. IMPRESSION: NO HEMODYNAMICALLY SIGNIFICANT STENOSIS. COMMENT: Quality ID #[id number]: Velocity criteria are extrapolated from the diameter data as defined by th e Society of Radiologists in Ultrasound Consensus Conference. Radiology 2003: 229; 340-346. TECHNICAL DOCUMENTATION: JOB ID: [id number] D/ Line above is the original date and time. 2010 [employer]- All Rights Reserved
--- NOTE | 2017-09-29 17:56 | XCELERA REPORT ---
[address] [address] Transthoracic Echocardiogram Report Name: GILBERTO JASON Age: 77 yrs Gender: Female : 1940 Patient Status: Inpatient Patient Location: [address] [place] [address] Study Date: 09/25/2017 07:05 PM Procedure: A two-dimensional transthoracic echocardiogram with color flow Doppler was performed. Study Quality: Fair. Reason For Study: CVA History: CVA. Ordering Physician: DYLAN MCCLOUD Performed By: Asha Garcia Interpretation Summary There is no obvious cardiac source of embolus noted on this transthoracic echocardiogram. Follow-up with a MORGAN is suggested if cardiac source is still suspected. The left ventricle is normal in size. There is normal left ventricular wall thickness. Left ventricular systolic function is normal. LV EF is > than 65% Doppler measurements suggest impaired left ventricular relaxation, which is associated with grade I/IV or mild diastolic dysfunction The left ventricular wall motion is normal. There is no thrombus. The left atrial size is normal. There is no evidence of mitral valve prolapse. There is no vegetation seen on the mitral valve. There is no mitral valve stenosis. There is no mitral regurgitation noted. There is no aortic valve stenosis There is no LVOT obstruction. No aortic regurgitation is present. There is no tricuspid stenosis. There is a trace amount of tricuspid regurgitation Right ventricular systolic pressure is normal. RVSP is 15 mm of Hg , with RA mean of 5. There is no pericardial effusion. There is no obvious cardiac source of embolus noted on this transthoracic echocardiogram. Follow-up with a MORGAN is suggested if cardiac source is still suspected MMode/2D Measurements & Calculations RVDd: 1.8 cm LVIDd: 4.7 cm FS: 46.9 % Ao root diam: 3.0 cm IVSd: 1.1 cm LVIDs: 2.5 cm EDV(Teich): 100.6 ml Ao root area: 7.0 cm2 LVPWd: 1.2 cm ESV(Teich): 21.8 ml EF(Teich): 78.3 % Doppler Measurements & Calculations MV E max francesca: MV dec slope: Ao V2 max: LV V1 max P.2 cm/sec 336.8 cm/sec2 188.4 cm/sec 6.6 mmHg MV A max francesca: MV dec time: Ao max PG: LV V1 max: 135.5 cm/sec 0.21 sec 14.2 mmHg 128.3 cm/sec MV E/A: 0.53 PA V2 max: TR max francesca: 161.7 cm/sec 160.7 cm/sec PA max PG: TR max P.3 mmHg 10.5 mmHg Left Ventricle The left ventricle is normal in size. There is normal left ventricular wall thickness. Left ventricular systolic function is normal. LV EF is > than 65%. Doppler measurements suggest impaired left ventricular relaxation, which is associated with grade I/IV or mild diastolic dysfunction. The left ventricular wall motion is normal. There is no thrombus. Right Ventricle The right ventricle is normal in size and function. Atria The right atrium is normal. The left atrial size is normal. The interatrial septum is intact with no evidence for an atrial septal defect. Mitral Valve There is no evidence of mitral valve prolapse. There is no vegetation seen on the mitral valve. There is no mitral valve stenosis. There is no mitral regurgitation noted. Aortic Valve There is no aortic valvular vegetation. There is no aortic valve stenosis. There is no LVOT obstruction. No aortic regurgitation is present. Tricuspid Valve There is no tricuspid stenosis. There is a trace amount of tricuspid regurgitation. Right ventricular systolic pressure is normal. RVSP is 15 mm of Hg , with RA mean of 5. Pulmonic Valve There is no pulmonic valvular stenosis. There is no pulmonic valvular regurgitation. Great Vessels The aortic root is normal size. Effusions There is no pericardial effusion. : DYLAN MCCLOUD > Gemini Garcia
== END 2017-09-28 18:00 | DRG 65 ==
LOC: ER 14:24 → EH 16:10 → 3W 19:43
PROVIDERS: ADMIT Internal Medicine; ATTEND Internal Medicine
DX: I63.541 Cerebral infarction due to unspecified occlusion or stenosis of right cerebellar artery (principal); I16.9 Hypertensive crisis, unspecified; R53.1 Weakness
CPT/HCPCS: 36415; 70450; 70551; 71045; 80048; 80053; 81001; 83880; 84484; 85025; 85027; 85610; 85730; 93005; 93010; 93306; 93880; 99291; G8978-GP; G8979-GP; G8987-GO; G8988-GO; G9162-GN; G9163-GN; G9164-GN; J0360; J1650; J3490; J7030

== ENCOUNTER 2019-04-26 08:29 | Day surgery (SDC) | payer MEDICARE ==
[~2019-04-26 08:29] MED LIST: BUPIVACAINE HCL 0.75% INJ/PF (7.5 MG/1 ML) 10 ML SDV OS PRN; KETOROLAC TROMETHAMINE 0.45% 4 DROP/0.4 ML DROPERETTE OS PRN; LIDOCAINE 1% INJ-PF (10 MG/ML) 30 ML SDV ONE; LIDOCAINE 4% INJ/PF (40 MG/ML) 5 ML AMPUL OS PRN
[2019-04-26] MEDS ORDERED: MIDAZOLAM 2 MG/2 ML INJ ONE ×2 (09:47→11:05)
[2019-04-26] MEDS: TETRACAINE HCL 0.5% OPH SOLN 4 ML OS PRN ×3 (09:58→10:34)
[2019-04-26] MEDS: TROPICAMIDE 1% OPH SOLN 15 ML OS PRN ×3 (09:59→10:23)
[2019-04-26] MEDS: CYCLOPENTOLATE 0.2%/PHENYLEPHRINE 1% OPH SOLN 2 ML OS PRN ×3 (09:59→10:23)
[2019-04-26] MEDS: BESIFLOXACIN HCL 0.6% OPH SUSP 5 ML BOTTLE OS PRN ×4 (09:59→11:02)
[2019-04-26] MEDS: EPINEPHRINE INJ/PF 1 MG/1 ML AMPULE ONE ×2 (10:50)
[2019-04-26] MEDS: CHONDR SU A NA/HYALUR INTRAOC KIT (SURGICARE) ONE ×2 (10:50)
[2019-04-26] MEDS: DORZOLAMIDE HCL 2%/TIMOLOL MALEAT 0.5% OPH SOLN 10 ML OS PRN ×2 (11:02)
--- NOTE | 2019-04-26 15:01 | PDOC DISCHARGE SUMMARY ---
Discharge Summary-[facility] Discharge Summary: DATE: 04/26/2019 FINAL DIAGNOSIS: CATARACT, LEFT EYE PROCEDURE: Cataract surgery with intraocular lens implant left eye HOSPITAL COURSE: The patient will be discharged to home. The patient is instructed to resume preoperative medications, take Tylenol as needed for discomfort, to keep the eye shielded, They should use the prescribed antibiotic, NSAID, and steroid at 3 PM and 8 PM, and to follow up in my office in 1 day.
--- NOTE | 2019-04-26 15:01 | Operative Report ---
Operative Report-[facility] Operative Report: DATE OF SURGERY: 04/26/2019 PREOPERATIVE DIAGNOSIS: CATARACT, LEFT EYE. POSTOPERATIVE DIAGNOSIS: CATARACT, LEFT EYE. PROCEDURE PERFORMED: PHACOEMULSIFICATION WITH POSTERIOR CHAMBER INTRAOCULAR LENS, LEFT EYE. Intraocular Lens Model : SN 60 WF 16.0 Total Phaco Time: 6.30 CDE SURGEON: CONNER VIVAS MD ANESTHESIA: TOPICAL WITH MAC. INDICATIONS FOR SURGERY: Difficultly driving at night and during the day PROCEDURE: The patient was brought to the Operating Room and placed on the operative table. Following tetracaine drops, topical anesthesia was administered. This consisted of instrument wipe pledgets soaked in a solution of 4% Xylocaine mixed with 0.75% Marcaine in a 1:2 ratio. A 2 x 1 cm pledget was placed in the superior fornix. A 1 x 1 cm pledget was placed in the inferior fornix. The eye was patched shut for 5 minutes. The patch was removed. The eye was sterilely prepped and draped in the usual manner. Lid speculum was placed in the eye. The pledgets were removed. 4-0 black silk sutures were placed around the superior and the inferior rectus muscles to be used as traction. A conjunctival peritomy was made at the 10 o'clock position. Hemostasis was obtained with bipolar cautery. A posterior limbal groove was created using a crescent knife and dissected anteriorly towards the cornea. A sharp point blade was used to create a paracentesis site at the 2 o'clock position. 0.2 cc non preserved Lidocaine was injected into the anterior chamber. A 2.4 mm keratome was used to enter the anterior chamber through the groove. Viscoelastic was injected into the anterior chamber. An anterior capsulotomy was performed using Utrata forceps in a capsulorrhexis fashion. Hydrodissection and hydrodelineation were performed. Phacoemulsification was performed in [id number] technique. Following this, the I/A unit was used to remove residual cortex. Viscoelastic was injected into the capsular bag. The Intraocular lens was placed in the capsular bag. The I/A unit was used to remove residual viscoelastic. The wound was seen to be watertight under high and low pressure, and no sutures were placed. The intraocular lens was well centered. The pressure was adjusted in the eye to normal pressure. The 4-0 black silk sutures and lid speculum were removed. The eye was shielded after Besivance and Cosopt drops were placed. The patient tolerated the procedure well and was sent to the Recovery Room in good condition.
== END 2019-04-26 11:55 | disposition home or self-care (01) ==
LOC: SC 08:29
PROVIDERS: ATTEND Ophthalmology
DX: H25.813 Combined forms of age-related cataract, bilateral (principal); H53.462 Homonymous bilateral field defects, left side; H04.123 Dry eye syndrome of bilateral lacrimal glands; I10 Essential (primary) hypertension; E78.00 Pure hypercholesterolemia, unspecified; I69.898 Other sequelae of other cerebrovascular disease; I69.854 Hemiplegia and hemiparesis following other cerebrovascular disease affecting left non-dominant side; H53.8 Other visual disturbances; Z87.891 Personal history of nicotine dependence; Z79.899 Other long term (current) drug therapy; Z79.82 Long term (current) use of aspirin
CPT/HCPCS: 66984; 00142; V2632; J2250; J3490 ×5; A9270; J0171; 142

== ENCOUNTER 2019-05-17 09:40 | Day surgery (SDC) | payer MEDICARE ==
[~2019-05-17 09:40] MED LIST changes: +BUPIVACAINE HCL 0.75% INJ/PF (7.5 MG/1 ML) 10 ML SDV OD PRN; -BUPIVACAINE HCL 0.75% INJ/PF (7.5 MG/1 ML) 10 ML SDV OS PRN; +CHONDR SU A NA/HYALUR INTRAOC KIT (SURGICARE) ONE; +EPINEPHRINE INJ/PF 1 MG/1 ML AMPULE ONE; +KETOROLAC TROMETHAMINE 0.45% 4 DROP/0.4 ML DROPERETTE OD PRN; -KETOROLAC TROMETHAMINE 0.45% 4 DROP/0.4 ML DROPERETTE OS PRN; +LIDOCAINE 4% INJ/PF (40 MG/ML) 5 ML AMPUL OD PRN; -LIDOCAINE 4% INJ/PF (40 MG/ML) 5 ML AMPUL OS PRN; +TETRACAINE HCL 0.5% OPH SOLN 0.6 ML DROPERETTE OD PRN; +TETRACAINE HCL 0.5% OPH SOLN 4 ML OS PRN
[2019-05-17] MEDS: TROPICAMIDE 1% OPH SOLN 3 ML OD PRN ×3 (10:00→10:22)
[2019-05-17] MEDS: CYCLOPENTOLATE 0.2%/PHENYLEPHRINE 1% OPH SOLN 2 ML OD PRN ×3 (10:01→10:22)
[2019-05-17] MEDS: BESIFLOXACIN HCL 0.6% OPH SUSP 5 ML BOTTLE OD PRN ×4 (10:01→11:24)
[2019-05-17] MEDS ORDERED: ONDANSETRON HCL INJ/PF 4 MG/2 ML SDV ONE (11:04)
[2019-05-17] MEDS ORDERED: MIDAZOLAM 2 MG/2 ML INJ ONE (11:04)
[2019-05-17] MEDS ORDERED: FENTANYL CITRATE INJ/PF 100 MCG/2 ML AMPUL ONE (11:04)
[2019-05-17] MEDS: DORZOLAMIDE HCL 2%/TIMOLOL MALEAT 0.5% OPH SOLN 10 ML OD PRN ×2 (11:24)
--- NOTE | 2019-05-17 11:56 | Operative Report ---
Operative Report-[facility] Operative Report: DATE OF SURGERY: 05/17/2019 PREOPERATIVE DIAGNOSIS: CATARACT, RIGHT EYE. POSTOPERATIVE DIAGNOSIS: CATARACT, RIGHT EYE. PROCEDURE PERFORMED: PHACOEMULSIFICATION WITH POSTERIOR CHAMBER INTRAOCULAR LENS, RIGHT EYE. Intraocular Lens Model : SN 6 0 WF 16.0 Total Phaco Time: 6.74 CDE SURGEON: CONNER VIVAS MD ANESTHESIA: TOPICAL WITH MAC. INDICATIONS FOR SURGERY: There with night driving. PROCEDURE: The patient was brought to the Operating Room and placed on the operative table. Following tetracaine drops, topical anesthesia was administered. This consisted of instrument wipe pledgets soaked in a solution of 4% Xylocaine mixed with 0.75% Marcaine in a 1:2 ratio. A 2 x 1 cm pledget was placed in the superior fornix. A 1 x 1 cm pledget was placed in the inferior fornix. The eye was patched shut for 5 minutes. The patch was removed. The eye was sterilely prepped and draped in the usual manner. Lid speculum was placed in the eye. The pledgets were removed. 4-0 black silk sutures were placed around the superior and the inferior rectus muscles to be used as traction. A conjunctival peritomy was made at the 10 o'clock position. Hemostasis was obtained with bipolar cautery. A posterior limbal groove was created using a crescent knife and dissected anteriorly towards the cornea. A sharp point blade was used to create a paracentesis site at the 2 o'clock position. 0.2 cc non preserved Lidocaine was injected into the anterior chamber. A 2.4 mm keratome was used to enter the anterior chamber through the groove. Viscoelastic was injected into the anterior chamber. An anterior capsulotomy was performed using Utrata forceps in a capsulorrhexis fashion. Hydrodissection and hydrodelineation were performed. Phacoemulsification was performed in [id number] technique. Following this, the I/A unit was used to remove residual cortex. Viscoelastic was injected into the capsular bag. The Intraocular lens was placed in the capsular bag. The I/A unit was used to remove residual viscoelastic. The wound was seen to be watertight under high and low pressure, and no sutures were placed. The intraocular lens was well centered. The pressure was adjusted in the eye to normal pressure. The 4-0 black silk sutures and lid speculum were removed. The eye was shielded after Besivance and Cosopt drops were placed. The patient tolerated the procedure well and was sent to the Recovery Room in good condition.
== END 2019-05-17 12:05 | disposition home or self-care (01) ==
LOC: SC 09:40
PROVIDERS: ATTEND Ophthalmology
DX: H25.811 Combined forms of age-related cataract, right eye (principal); Z96.1 Presence of intraocular lens; I10 Essential (primary) hypertension; Z79.899 Other long term (current) drug therapy; Z79.82 Long term (current) use of aspirin
CPT/HCPCS: 66984; V2632; J2250; J3490 ×5; A9270; J0171; J3010; J2405; 142